=== PATIENT | male | born 1990 | race Caucasian/White ===

== ENCOUNTER 2018-12-09 20:29 | Emergency (ER) | payer OTHER ==
[2018-12-09] MEDS ORDERED: TRANEXAMIC ACID 1,000 MG/10 ML VIAL NAS STA (20:41)
--- NOTE | 2018-12-09 20:57 | ED Physician Documentation ---
PD HPI HEAD INJURY - Stated complaint Stated Complaint: NOSE INJURY - Chief complaint Chief Complaint: Trauma Hd/Nk - History obtained from History obtained from: Patient, Friend - History of Present Illness Mechanism of head injury: Blow Where head injury occurred: Other (gym) Timing - onset: Today Location of injury: Front Quality of pain: Pain Associated symptoms: Nasal drainage. No: LOC, AMS, Amnesia, Nausea / vomiting, Neck pain, Paresthesias, Seizures, Ear drainage Symptoms improve with: Rest, Ice Symptoms worsen with: Palpation, Movement Contributing factors: No: Anticoagulated Similar symptoms before: Has not had sx before Recently seen: Not recently seen - Additional information Additional information: 28-year-old male was doing [employer]olt today when he was kneed in the nose. He states that he has pain associated with this and deformity to the nasal bridge. He did not have loss of consciousness he has had bleeding which has been able to control with direct pressure and packing. Review of Systems Constitutional: denies: Fever Eyes: denies: Decreased vision Ears: denies: Ear pain Nose: reports: Epistaxis Throat: denies: Dental pain / toothache Cardiac: denies: Chest pain / pressure Respiratory: denies: Dyspnea, Cough GI: denies: Nausea, Vomiting PD PAST MEDICAL HISTORY - Present Medications Home Medications: Ambulatory Orders Medication Instructions Recorded Confirmed No Known Home Medications 12/09/18 12/09/18 - Allergies Allergies/Adverse Reactions: Allergies Allergy/AdvReac Type Severity Reaction Status Date / Time No Known Drug Allergies Allergy Verified 12/09/18 20:39 PD ED PE NORMAL - Vitals Vital signs reviewed: Yes (hypertensive) - General General: Alert and oriented X 3, No acute distress, Well developed/nourished - HEENT HEENT: PERRL, EOMI, Other (There is marked deformity to the nasal bridge. 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 Comminuted anterior nasal bone fracture the right nasal bone is deviated to the left by 4 mm probably old medial left orbital laminal papyracea defect), EMP read indepedently, See rad report PD MEDICAL DECISION MAKING - ED course Complexity details: reviewed results, re-evaluated patient, considered differential, d/w patient, d/w family ED course: 28-year-old male with a nasal contusion with obvious deformity likely has a broken nose and he is able to tolerate repositioning well and following the repositioning a CT scan is obtained to consider further manipulation. The CT scan indicates extensive fracture with deviation of the septum and referral to maxillofacial ([place]) is made. Departure - Departure Disposition: 01 Home, Self Care Clinical Impression: Nasal bone fractures Qualifiers: Encounter type: initial encounter Fracture type: closed Qualified Code(s): S02.2XXA - Fracture of nasal bones, initial encounter for closed fracture Condition: Stable Instructions: ED Fx Nasal Conf W X Ray Follow-Up: DONNA FRANCO [Physician No Access] -
[2018-12-09] MEDS ORDERED: CEPHALEXIN 250 MG Prepack 8 PO ONE (21:16)
--- NOTE | 2018-12-09 21:38 | CT Report ---
Reason: MID face trauma Procedure Date: 12/09/2018 Accession Number: [id number] / [id number] Procedure: CT - MAXILLOFACIAL WO CPT Code: FULL RESULT: EXAM: CT MAXILLOFACIAL WITHOUT CONTRAST EXAM DATE: 12/09/2018 09:11 PM. CLINICAL HISTORY: MID face trauma. COMPARISONS: None. TECHNIQUE: Thin-section axial images were acquired of the face without contrast. Post-processing: Coronal and sagittal reformats. Other: None. In accordance with CT protocol optimization, one or more of the following dose reduction techniques were utilized for this exam: automated exposure control, adjustment of mA and/or KV based on patient size, or use of iterative reconstructive technique. FINDINGS: Soft Tissue: There is soft tissue swelling of the nose. No other fluid collection or hematoma. Orbits: There is a left lamina papyracea defect with left orbital fat protruding medially by 5 mm without adjacent fluid. Orbits appear otherwise unremarkable. Bones: There is a comminuted fracture of the nasal bone. The right nasal bone appears displaced to the left by 4 mm. No other facial fracture. Temporomandibular Joints: The temporomandibular joints are symmetric and normally located. Sinuses: There is mucosal thickening in the bilateral maxillary sinuses. There is no air-fluid level. The visualized mastoid sinuses appear clear. Other: None. IMPRESSION: 1. Comminuted anterior nasal bone fracture. The right nasal bone is deviated to the left by 4 mm. 2. 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
[2018-12-09 21:45] VITALS: BP 131/82
== END 2018-12-09 21:50 | disposition home or self-care (01) ==
LOC: ED 20:29
DX: S02.2XXA Fracture of nasal bones, initial encounter for closed fracture (principal); W51.XXXA Accidental striking against or bumped into by another person, initial encounter; Y93.75 Activity, martial arts
CPT/HCPCS: 70486; 99283

== ENCOUNTER 2018-12-11 11:32 | Day surgery (SDC) | payer OTHER ==
[2018-12-11] MEDS ORDERED: ceFAZolin 2 GM/50 ML 2 GM/50 ML BAG IV ONE (11:41)
[2018-12-11] MEDS ORDERED: LIDOCAINE 1%-EPI 1:100000 30 ML MDV ONE (11:46)
[2018-12-11] MEDS ORDERED: LIDOCAINE MPF 2%-EPI 1:200000 20 ML VIAL ONE (11:46)
[2018-12-11] MEDS ORDERED: OXYMETAZOLINE NASAL SPRAY NAS ONE (11:46)
[2018-12-11] MEDS ORDERED: BACITRACIN OINT TOP ONE (11:47)
[2018-12-11] MEDS ORDERED: LACTATED RINGERS 1,000 ML IV ONE ×2 (11:59→14:06)
--- NOTE | 2018-12-11 12:13 | ANESTHESIA ---
Pre-Anesthesia VS, & Labs - Diagnosis Nasal fracture - Procedure Closed reduction nasal fracture Vital Signs: Temp Pulse Resp BP Pulse Ox 36.4 C L 50 L 18 129/60 98 12/11/18 11:43 12/11/18 11:43 12/11/18 11:43 12/11/18 11:43 12/11/18 11:43 Height 5 ft 9 in Weight (kg) 96 kg Body Mass Index 31.1 - NPO >8 hours Home Medications and Allergies No Known Home Medications 12/09/18 Allergies/Adverse Reactions: Allergies Allergy/AdvReac Type Severity Reaction Status Date / Time No Known Drug Allergies Allergy Verified 12/09/18 20:39 Anes History & Medical History - Anesthetic History Anesthesia Complications: reports: No previous complications Family history of Anesthesia Complications: Denies Family history of Malignant Hyperthermia: Denies - Medical History Cardiovascular: reports: None Pulmonary: reports: None Gastrointestinal: reports: None Urinary: reports: None Neuro: reports: None Musculoskeletal: reports: None Endocrine/Autoimmune: reports: None Blood Disorders: reports: None Skin: reports: None Smoking Status: Never smoker Psychosocial: reports: No issues indicated - Surgical History General: Other Exam General: Alert, Oriented x3 Dental: Other (Chipped left front) Mouth Opening: Greater than 4 Fingerbreadths Neck Mobility: Normal Mallampati classification: I Thyromental Distance: greater than 6 cm Respiratory: Lungs clear Cardiovascular: Regular rate Mental/Cognitive Status: Alert/Oriented X3 Cognitive Status: Within normal limits Plan Anesthesia Type: General Consent for Procedure(s) Verified and Reviewed: Yes Code Status: Attempt Resuscitation ASA classification: 1-Healthy patient Is this case an emergency?: No
[2018-12-11] MEDS ORDERED: KETOROLAC 30 MG/ML VIAL IVP ONE (12:50)
[2018-12-11] MEDS ORDERED: MIDAZOLAM 2 MG/2 ML VIAL IVP ONE (12:50)
[2018-12-11] MEDS ORDERED: PROPOFOL 200 MG/20 ML VIAL IVP ONE (12:50)
[2018-12-11] MEDS ORDERED: DEXAMETHASONE 4 MG/ML VIAL IVP ONE (12:50)
[2018-12-11] MEDS ORDERED: ONDANSETRON 4 MG/2 ML VIAL IVP ONE (12:50)
[2018-12-11] MEDS ORDERED: LIDOCAINE-MPF 2% 5 ML VIAL IM ONE (12:50)
[2018-12-11] MEDS ORDERED: fentaNYL 100 MCG/2 ML VIAL IVP ONE (12:50)
[2018-12-11] MEDS ORDERED: ONDANSETRON 4 MG/2 ML VIAL IVP PRN (13:26)
[2018-12-11] MEDS ORDERED: HYDROcod/ACETAM 5/325 MG TABLET PO PRN (13:26)
[2018-12-11] MEDS ORDERED: HYDROmorphone 0.5 MG/0.5 ML SYRINGE ONE ×2 (13:29→13:55)
[2018-12-11] MEDS ORDERED: ACETAMINOPHEN 1,000 MG/100 ML 100 ML IV ONE (13:30)
[2018-12-11] MEDS: HYDROmorphone 0.5 MG/0.5 ML SYRINGE ONE ×2 (13:35→13:50)
[2018-12-11 14:50] VITALS: BP 125/61
--- NOTE | 2018-12-12 04:17 | OPERATIVE REPORT ---
DATE OF SERVICE: 12/11/2018 Physician: Thierry Monteiro DDS PREOPERATIVE DIAGNOSIS: Bilateral nasal bones and septum fracture. POSTOPERATIVE DIAGNOSIS: Bilateral nasal bones and septum fracture. PROCEDURE PERFORMED: Closed reduction of bilateral nasal bones and septal fracture with external nasal splint and internal nasal packing. PRIMARY SURGEON: Thierry Monteiro DDS ANESTHESIA TYPE: General anesthesia with laryngeal mask airway. SSIS ARCHITECT: Abe ESTIMATED BLOOD LOSS: 20 mL COMPLICATIONS: None. DRAINS/PACKS/CATHETERS: A single strand of 1/4-inch iodoform gauze was packed into the bilateral nares with the isthmus of the strand visible in the anterior nose. A Merocel splint was also placed into each naris and they were secured through the nasal septum with a 2-0 silk suture. INDICATIONS FOR PROCEDURE: Patient is a 28-year-old male who was practicing martial arts when he sustained a knee to the face. Clinical and radiographic examination was consistent with a bilateral nasal bones and septum fracture with significant displacement to the left and almost complete inability to breathe through the nose. It was decided that closed reduction of these fractures was indicated as soon as possible, before the bones became hard to reduce. The risks, benefits and alternatives of this plan were discussed with the patient including pain, swelling, bleeding, infection, poor cosmesis, permanent difficulty breathing, deviation of the nose, malunion, nonunion, need for further surgeries. Adequate time was given to answer all questions and informed consent was obtained. DESCRIPTION OF PROCEDURE: The patient was brought to the main operating room and placed in a supine position on the operating table. General anesthesia was induced by the anesthesia team and the airway was secured with a laryngeal mask airway. The patient was prepped and draped in the standard fashion for a closed reduction of the nasal bones. A formal timeout was executed. The eyes were protected with Tegaderm. A throat pack was placed, comprised of a Ray-Cherie. Local anesthesia was achieved with 1% lidocaine with 1:100,000 epinephrine x4 mL. Afrin-soaked cottonoids were then placed, 3 in the right naris and 3 in the left naris, and left in place for 5 minutes to allow for hemostasis. After 5 minutes, they were removed. A Boies elevator was used to reduce the nasal bones. They were noted to be very comminuted and could be reduced into place easily, but rebounded off to the left as soon as the Boies was removed from the nose. An Asch forceps was also used to straighten the septum. The 1/4-inch iodoform gauze was then packed up into the superior nasal cavity to maintain the reduced nasal bones in the proper position. With these in place, it could be appreciated that the dorsum of the nose was very straight. Merocel splints were then coated in bacitracin and placed in each naris. A 2-0 silk suture was used to secure them to the septum. The patient's face was cleansed and then a dorsal nasal splint, a [place] splint, was placed, taking care not to expose the eyes to the adhesive agents. The mouth was then suctioned. The throat pack was removed. The oropharynx was suctioned and care of patient was returned to the anesthesia team. The patient was emerged uneventfully from anesthesia and transferred to the PACU in stable condition. TD: 12/11/2018 23:14 AMELIA
== END 2018-12-11 11:33 | disposition home or self-care (01) ==
LOC: SDS 11:32
PROVIDERS: ATTEND Dentist Oral and Maxillofacial Surgery
PROC: 0NSBXZZ Reposition Nasal Bone, External Approach (ICD-10-PCS; 2018-12-11)
PROC: 0NSBXZZ Reposition Nasal Bone, External Approach (ICD-10-PCS; principal; 2018-12-11 12:30)
DX: S02.2XXA Fracture of nasal bones, initial encounter for closed fracture (principal)
CPT/HCPCS: 21320; 21337; A9270; J0131; J0690; J1170; J7120

== ENCOUNTER 2021-02-10 13:36 | Emergency (ER) | payer OTHER ==
[2021-02-10 14:02] LABS: BASOPHILS % (AUTO) 0.6 %; EOSINOPHILS % (AUTO) 0.5 %; HCT - HEMATOCRIT 47.5 % (42.0-52.0); HGB - HEMOGLOBIN 16.4 g/dL (14.0-18.0); LYMPHOCYTES # (AUTO) 1.9 10^3/uL (1.5-3.5); LYMPHOCYTES % (AUTO) 29.6 %; MEAN CORPUSCULAR HEMOGLOBIN 32.7 pg (27.0-31.0); MEAN CORPUSCULAR HGB CONC 34.5 g/dL (32.0-36.0); MEAN CORPUSCULAR VOLUME 94.6 fL (80.0-94.0); MONOCYTES # (AUTO) 0.5 10^3/uL (0.0-1.0); NEUTROPHILS # (AUTO) 3.9 10^3/uL (1.5-6.6); NEUTROPHILS % (AUTO) 60.8 %; PLT - PLATELET COUNT 214 10^3/uL (130-450); RED BLOOD COUNT 5.02 10^6/uL (4.70-6.10); RED CELL DISTRIBUTION WIDTH 11.7 % (12.0-15.0); WHITE BLOOD COUNT 6.5 x10^3/uL (4.8-10.8)
--- OUTSIDE RECORDS SUMMARY | 2021-02-10 14:11 | EXTERNAL MEDICAL SUMMARY RPT | Continuity of Care Document ---
:1990 Demographics Phone Unavailable Preferred Language Unknown Marital Status Unknown Mandaeism Affiliation Unknown Race Unknown Ethnic Group Unknown Author Organization [facility] Address [address] [place] [address] Phone Allergies Encounters Medications Problems Results
[2021-02-10 14:16] LABS: ALBUMIN 4.3 g/dL (3.2-5.5); ALBUMIN/GLOBULIN RATIO 1.5 (1.0-2.2); BILIRUBIN,TOTAL 0.7 mg/dL (0.2-1.0); CALCIUM 9.1 mg/dL (8.5-10.3); CREATININE 1.2 mg/dL (0.6-1.2); POTASSIUM 4.4 mmol/L (3.5-5.0); TOTAL PROTEIN 7.2 g/dL (6.7-8.2)
--- NOTE | 2021-02-10 14:18 | XRAY Report ---
PROCEDURE: Chest 1 View X-Ray INDICATIONS: Chest pain TECHNIQUE: One view of the chest was acquired. COMPARISON: None FINDINGS: Surgical changes and devices: None. Lungs and pleura: No pleural effusions or pneumothorax. Lungs are clear. Mediastinum: Mediastinal contours appear normal. Heart size is normal. Bones and chest wall: No suspicious bony lesions. Overlying soft tissues appear unremarkable. IMPRESSION: No evidence acute pulmonary process. Reviewed by: Jimy Andino MD on 02/10/2021 2:17 PM PDT Approved by: Jimy Andino MD on 02/10/2021 2:17 PM PDT Station ID: [id number]
--- NOTE | 2021-02-10 15:17 | ED Physician Documentation ---
PD HPI CHEST PAIN - Stated complaint Stated Complaint: CHEST PX - Chief complaint Chief Complaint: Cardiac - History obtained from History obtained from: Patient - History of Present Illness Timing - onset: How many years ago (2) Pain level max: 5 Pain level now: 0 Quality: Sharp Location: Left chest Radiation: No: Jaw, Neck, Back, Abdominal, Left upper extremity, Right upper extremity Improved by: Rest Worsened by: Exertion Associated symptoms: No: Shortness of air, Diaphoresis, Nausea, Vomiting, Feeling faint / dizzy, General Weakness, Palpitations, Cough Recently seen: Not recently seen - Additional information Additional information: Patient is a 30-year-old male who presents to the emergency department with chest pain. He states is been ongoing for about 2 years. He states that it is sharp, left-sided. Usually occurs when he is exercising. He states he either slows down or speeds up and it normally goes away. Today he was lifting weights when he felt the same symptoms, called the [facility] nurse advice line and was sent here for evaluation. Currently asymptomatic. No history of young cardiac disease in the family. No history of sudden in young members of his family. No fevers. No chills. No cough. Review of Systems Constitutional: denies: Fever, Chills Respiratory: denies: Cough GI: denies: Vomiting, Diarrhea Musculoskeletal: denies: Neck pain, Back pain Neurologic: denies: Headache PD PAST MEDICAL HISTORY - Past Medical History Cardiovascular: None Respiratory: None Neuro: None Endocrine/Autoimmune: None GI: None : None HEENT: None Psych: None Musculoskeletal: None Derm: None - Past Surgical History Past Surgical History: No General: Other - Present Medications Home Medications: Ambulatory Orders Medication Instructions Recorded Confirmed No Known Home Medications 12/09/18 12/09/18 - Allergies Allergies/Adverse Reactions: Allergies Allergy/AdvReac Type Severity Reaction Status Date / Time No Known Drug Allergies Allergy Verified 02/10/21 13:42 - Social History Does the pt smoke?: No Smoking Status: Never smoker Does the pt drink ETOH?: No Does the pt have substance abuse?: No PD ED PE NORMAL - Vitals Vital signs reviewed: Yes - General General: Alert and oriented X 3, No acute distress, Well developed/nourished - HEENT HEENT: PERRL, Moist mucous membranes - Neck Neck: Supple, no meningeal sign - Cardiac Cardiac: RRR, No murmur, Strong equal pulses - Respiratory Respiratory: No respiratory distress, Clear bilaterally - Abdomen Abdomen: Soft, Non tender, Non distended - Derm Derm: Warm and dry - Extremities Extremities: No edema, No calf tenderness / cord - Neuro Neuro: Alert and oriented X 3 - Psych Psych: Normal mood, Normal affect Results - Vitals Vitals: Vital Signs - 24 hr 02/10/21 13:42 Temperature 36.5 C Heart Rate 63 Respiratory 16 Rate Blood Pressure 142/70 H O2 Saturation 97 Oxygen O2 Source Room air - EKG (time done) 1340 Rate: Rate (enter#) (63) Rhythm: NSR [place]: Normal Intervals: Normal NC QRS: Normal Ischemia: ST elevation c/w repol - Labs Labs: Laboratory Tests 02/10/21 02/10/21 02/10/21 13:55 13:55 13:55 WBC 6.5 RBC 5.02 Hgb 16.4 Hct 47.5 MCV 94.6 H MCH 32.7 H MCHC 34.5 RDW 11.7 L Plt Count 214 MPV 9.0 Neut # (Auto) 3.9 Lymph # (Auto) 1.9 [place]ison # (Auto) 0.5 Eos # (Auto) 0.0 Baso # (Auto) 0.0 Absolute Nucleated RBC 0.00 Nucleated RBC % 0.0 Sodium 140 Potassium 4.4 Chloride 103 Carbon Dioxide 29 Anion Gap 8.0 BUN 27 H Creatinine 1.2 Estimated GFR (MDRD) 71 L Glucose 100 Calcium 9.1 Total Bilirubin 0.7 AST 28 ALT 32 Alkaline Phosphatase 42 Troponin I High Sens 18.5 Total Protein 7.2 Albumin 4.3 Globulin 2.9 Albumin/Globulin Ratio 1.5 Lipase 28 - Rads (name of study) cxr Radiology: Prelim report reviewed, EMP read contemporaneously, See rad report (no acute findings) PD MEDICAL DECISION MAKING - ED course Complexity details: reviewed results, re-evaluated patient, considered differential (No ST elevation [place], no aortic dissection, no PE, no tension pneumothorax, no aortic aneurysm), d/w patient ED course: No acute findings on radiograph, EKG, laboratory testing. We will have him follow-up with his doctor for further care. Patient will return if he worsens. Recommend an echocardiogram and cardiac stress test as an outpatient. Would likely recommend cardiac imaging to exclude any anomalous coronary arteries. Patient counseled regarding signs and symptoms for which I believe and urgent re-evaluation would be necessary. Patient with good understanding of and agreement to plan and is comfortable going home at this time This document was made in part using voice recognition software. While efforts are made to proofread this document, sound alike and grammatical errors may occur. Departure - Departure Disposition: 01 Home, Self Care Clinical Impression: Atypical chest pain Condition: Good Instructions: ED Chest Pain Atypical Unkn Cause Follow-Up: your,doctor in 1 week [Other] Comments: Please follow-up with your doctor for further care. Return if you worsen. Your testing was normal today. You should have an echocardiogram and a cardiac stress test. Until then if you are having any symptoms, you should stop or decrease your activity.
[2021-02-10 15:37] VITALS: BP 122/72
== END 2021-02-10 15:37 | disposition home or self-care (01) ==
LOC: ED 13:36
DX: R07.89 Other chest pain (principal)
CPT/HCPCS: 36415; 80053; 83690; 84484; 85025; 93005; 99284